=== PATIENT | female | born 1945 | race Caucasian/White ===

== ENCOUNTER → 2017-08-18 | Outpatient (CLI) | payer OTHER ==
[~2017-08-18] MED LIST: ALEVE220 MG PO; APAP650 PO; ASPIRIN325 PO; CEFPODOXIME PR200 M1 PO; COLACE100 MG PO; HYDROCODONE-AP1 EAC6 PO; MELATONIN5 M1 PO; METAMUCIL1 EAC1 PO; MIRALAX17 GM PO; OXYCODONE HCL 55 MG PO; SYNTHROID100 MCG PO; TRAZODONE HCL50 MG PO; ULTRAM 50MG TAB50 MG PO; XARELTO10 MG PO
== END ==
LOC: M.ULTRA 10:00
DX: N63.10 Unspecified lump in the right breast, unspecified quadrant (principal)

== ENCOUNTER → 2017-08-23 | Outpatient (CLI) | payer OTHER ==
--- NOTE | 2017-08-31 13:23 | S ---
[place] [address] SURGICAL PATH RPT PROCEDURE Name: MINOO STOCKTON Room: [facility]..#: [id number] Admission: 08/23/17 Date of : 47 Discharge: Report #: [id number] Path Case #: [id number] PATHOLOGY REPORT COLLECTION DATE: 08/23/2017 RECEIVED DATE: 08/23/2017 SUBMITTING PHYS: Dr. Gabriel Mullins OTHER PHYS: Anjelica Burnette MD SPECIMEN(S) RECEIVED: A.Right breast 1:00, 7 CMFN * * * * * * * * * * * * FINAL DIAGNOSIS: Breast biopsy "right breast 1:00, 7 cm from the nipple": - INFILTRATING DUCTAL CARCINOMA GRADE 1 MEASURING 0.8 CM IN GREATEST DIMENSION. - Minor focus of in situ ductal carcinoma cribriform type. COMMENT: Specimen type: biopsy Tumor site: right breast Tumor quantitation: 0.8cm Histologic type: infiltrating ductal carcinoma Histologic grade: grade 1 Tubules, nuclei and mitoses: 2,2,1 LVSI: none Microcalcifications: present Markers: ordered Block: A3 This case will receive intradepartmental review. If there are any changes additional report will follow. Luna Donahue at Dr. Gabriel Mullins's office was notified of the diagnosis on 08/24/2017 at 11am. Predictive breast markers are ordered and an additional report will follow. (SHA:pit; 08/24/2017) PATHOLOGIST: Gregg Gibbons M.D. REPORT ELECTRONICALLY SIGNED BY: Gregg Gibbons M.D. DATE/TIME: 08/24/2017 12:28 * * * * * * * * * * * * GROSS PATHOLOGY: Received in formalin labeled "Minoo Stockton, right breast 1:00 7 cm FN from nipple," are multiple needle cores of yellow-bernal fibrofatty tissue measuring between 2.1 x 0.4 x 0.3 cm and 0.5 x 0.5 [place] 0[place] [address] SURGICAL PATH RPT PROCEDURE Name: MINOO STOCKTON Room: [facility].#: [id number] Admission: 08/23/17 Date of : 47 Discharge: Report #: [id number] Path Case #: [id number] The tissue is submitted in its entirety in cassettes A1-A3. The cold ischemic time is 1 minute. The total formalin fixation time is 12 hours and 4 minutes. (SDY; 08/23/2017) CLINICAL HISTORY: 1:00 7 cm FN 0.6 x 0.4 x 0.6 cm INITIAL CPT CODE(S): A; 84511, 49819(4) Professional services performed by [facility] at [facility], [facility] [address], [place] [address]. Technical services performed by [facility] at [address] [place] [address], [address], [place] [address]. PROCEDURE REPORT (Order Date: 08/24/2017 11:11) COMMENT: Quantitative image analysis was performed on block A2. Please see next page for scanned image of results. (AMJ 08/31/2017) PATHOLOGIST: Marquita Ramos M.D. REPORT ELECTRONICALLY SIGNED BY: Marquita Ramos M.D. DATE/TIME: 08/31/2017 13:[address] [facility] [address] [place] [address] PHONE: [phone] DIRECTOR: Pedrito Nguyen M.D. * * * END OF REPORT * * *
== END ==
LOC: M.ULTRA 08:19
DX: N63.10 Unspecified lump in the right breast, unspecified quadrant (principal); D05.11 Intraductal carcinoma in situ of right breast

== ENCOUNTER → 2017-08-30 | Outpatient (CLI) | payer OTHER ==
--- NOTE | 2017-09-12 01:44 | CON ---
[address] [address] CONSULTATION Name: SANTY STOCKTON Room: [facility].#: [id number] Admission: 08/30/17 Attend Phys: Jadiel Anderson MD Discharge: Date of : 47 Report #: [id number] THIS REPORT FOR: //name// CC: Jadiel Brennan [facility] phone is [phone]. REFERRING PHYSICIANS: Include: Dr. Izzy Burnette, Dr. Brennan, Dr. Sherrie Lee. PRIMARY SITE AND HISTOPATHOLOGY: The patient has findings consistent with an early infiltrating ductal carcinoma of the right breast. HISTORY OF PRESENT ILLNESS: The patient is a 71-year-old woman who underwent a routine mammogram on 08/11/2017. It showed a spiculated nodule in the upper inner aspect of the posterior right breast and measured about 0.8 cm. An ultrasound revealed two nodules in the 1 o' clock position of the right breast, one measured 0.3 cm. x 0.3 cm. x 0.4 cm and that was the one that was suspicious. There was an adjacent smaller one measuring 0.2 cm. x 0.2 cm. x 0.3 cm. The patient had a biopsy of this lesion on 08/23/2017 and the pathology revealed an infiltrating ductal carcinoma that measured about 0.8 cm in greatest dimension and she presents to discuss treatment options. PAST MEDICAL HISTORY AND PAST SURGICAL HISTORY: Includes hypertension, history of colon polyps, hypothyroidism and arthritis. 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 MEDICATIONS: Levothyroxine 100 mcg per day and then 200 mg of ibuprofen 1-2 a day as needed. ALLERGIES: The patient has no known drug allergies. OBSTETRICAL AND GYNECOLOGIC HISTORY: Menarche at age 17, menopause around age 56. She is 3, para 2, SAB 1. FAMILY HISTORY: Mother had breast cancer and maternal grandfather had cancer, unknown type. Maternal and paternal aunts with cancers of unknown type. 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 She is . She has a son and a daughter. Ethanol: she does not drink alcohol containing drinks. Cigarettes: she does not smoke cigarettes. REVIEW OF SYSTEMS: GENERAL: She denied having any [place] [address] CONSULTATION Name: SANTY STOCKTON Room: [facility]#: [id number] Admission: 08/30/17 Attend Phys: Jadiel Anderson MD Discharge: Date of : 47 Report #: [id number] SKIN: She denied having color changes or itching. LYMPH NODES: She denied having large or painful glands in the neck. ENDOCRINE: She denied having any hot or cold intolerance. HEMATOLOGY/IMMUNOLOGY: She denied having any anemia or recent bleeding. MUSCULOSKELETAL: She did not have any arthritis or painful swollen joints. HEAD AND NECK: She denied having any headaches or migraines. RESPIRATORY: She denied having shortness of breath or cough. CARDIOVASCULAR: The patient did not have any palpitations. GASTROINTESTINAL: She denied having nausea or vomiting. NEUROLOGIC: She denied having any focal weakness. PHYSICAL EXAMINATION: With my nurse, Bailey Gunter, present: VITAL SIGNS: Height 5 feet 10 inches, weight 213 pounds, blood pressure 155/78, pulse 72, respirations 20. LYMPH NODES: The patient had no palpable cervical, supraclavicular or axillary lymphadenopathy. GENERAL AND PSYCHIATRIC: The patient was alert, oriented, in no acute distress. EYES: Pupils were equal, round, reactive to light and accommodation. Extraocular movements were intact. EARS, NOSE AND THROAT: Mouth had no visible lesions. HEART: Had a regular rate and rhythm without murmur. LUNGS: were clear to auscultation. BREASTS: Right breast, the patient had a small seroma measuring about 1.7 cm.x 1.7 cm in the 12 o'clock position. There were no suspicious masses involving the right breast. There were no suspicious palpable masses involving the left breast. ABDOMEN: Not tender. Spleen was not palpable. Liver was at the costal margin. EXTREMITIES: No clubbing, cyanosis or edema. NEUROLOGIC: Cranial nerves II to XII were intact. Sensation was intact. The patient had 5/5 strength in her extremities. ASSESSMENT AND PLAN: The patient has early breast cancer. Tumor markers are still pending. So she was told that her treatment options can include breast conservation versus mastectomy. This is based on studies such as the NSABP B-06 study where patients with early breast cancers were randomized between mastectomy versus lumpectomy, lumpectomy alone versus lumpectomy and radiation therapy. There was no difference in survival between the three treatment groups. At 20 years follow up the addition of radiation therapy to lumpectomy reduced the local failure rate from 39% to 14%. The risks and benefits and logistics of radiation therapy were discussed with the patient in detail. At this point, she is leaning towards proceeding with breast conservation therapy and she is leaning towards having external beam radiation therapy. The option of partial breast radiation with an implant was discussed with the patient. Also if this is an estrogen receptor positive tumor and the lymph nodes are not involved, then she does have an option of just surgery alone. This is based on the CAL study 9343 where patients at age 70 or greater, who had small estrogen receptor positive tumors and lymph nodes that were not involved with cancer, were randomized between lumpectomy and tamoxifen versus lumpectomy and tamoxifen and radiation therapy. At 10 years, the recurrence rate was about 10% without radiation therapy versus 2% with radiation therapy; [place] [address] CONSULTATION Name: SANTY STOCKTON Room: [facility]#: [id number] Admission: 08/30/17 Attend Phys: Jadiel Anderson MD Discharge: Date of : 47 Report #: [id number] difference in survival. She prefers trying to lower her recurrence rate as much as possible and is probably leaning towards radiation therapy even in that situation. So, I will ask my staff to give her a followup appointment to see me in a few weeks. She is scheduled to see her surgeon, Dr. Brennan, on 09/06/2017 and she is in the process of getting an appointment with her medical oncologist. <ELECTRONICALLY SIGNED> By: Jadiel Anderson MD 09/12/17 0144 1146 1756Jadiel Anderson MD /nt
== END ==
LOC: M.RTH 02:40
DX: C50.911 Malignant neoplasm of unspecified site of right female breast (principal); I10 Essential (primary) hypertension; E03.9 Hypothyroidism, unspecified; M19.90 Unspecified osteoarthritis, unspecified site; Z96.652 Presence of left artificial knee joint; Z86.010 Personal history of colon polyps

== ENCOUNTER → 2017-09-20 | Day surgery (SDC) | payer OTHER ==
[2017-09-20 11:02] LABS: HEMATOCRIT 38.6 % (37.0-47.0); MCH 28.6 pg (26.0-34.0); MCHC 33.7 g/dL (28.0-37.0); MCV 85.1 fL (80.0-100.0); MPV 7.7 fl. (7.2-11.1); RBC 4.54 mil/uL (4.20-5.00); RDW-CV 15.6 % (10.5-14.5); WBC 9.5 thou/uL (4.0-11.0)
[2017-09-20 11:08] LABS: CALCIUM 9.2 mg/dL (8.5-10.1); CREATININE 0.8 mg/dL (0.6-1.3); POTASSIUM 3.6 mmol/L (3.5-5.1)
[2017-09-20 11:13] LABS: TOTAL BILIRUBIN 1.1 mg/dL (<0.1-1.0); TOTAL PROTEIN 7.7 g/dL (6.4-8.2)
--- NOTE | 2017-09-25 13:35 | S ---
[address] [address] SURGICAL PATH RPT PROCEDURE Name: MINOO STOCKTON Room: [facility].#: [id number] Admission: 09/20/17 Date of : 47 Discharge: Report #: [id number] Path Case #: [id number] PATHOLOGY REPORT COLLECTION DATE: 09/20/2017 RECEIVED DATE: 09/20/2017 SUBMITTING PHYS: Dr. Janice Brennan OTHER PHYS: Anjelica Burnette MD SPECIMEN(S) RECEIVED: A.Right breast lumpectomy, short suture superior/long suture lateral B.Posterior margin short suture superior/long suture lateral C.Right sentinel lymph node * * * * * * * * * * * * FINAL DIAGNOSIS: A. Right breast lumpectomy, short suture superior/long suture lateral: - DUCTAL ADENOCARCINOMA, LOW GRADE (GRADE I), SPANNING 4 MM, ADJACENT TO CHANGES OF PRIOR BIOPSY SITE, WITH ALL SURGICAL MARGINS FREE OF INVOLVEMENT AND CLOSEST (ANTERIOR) LOCATED 5 MM AWAY. - FOCAL DUCTAL CARCINOMA IN SITU, INTERMEDIATE GRADE, CRIBRIFORM TYPE, SPANNING 3 MM, WITH ALL SURGICAL MARGINS FREE OF INVOLVEMENT AND CLOSEST (ANTERIOR) LOCATED 9 MM AWAY. SEE COMMENT. B. Posterior margin right breast: - Benign breast tissue with focal fat necrosis compatible with prior biopsy changes, usual ductal epithelial hyperplasia and lumenal calcifications, negative for atypia. C. Right sentinel lymph node: - One benign lymph node ( 0 /1). See comment. CLINICAL Clinical History: Prior history of breast cancer Specify Site, Diagnosis, and Prior Treatment: see comment SPECIMEN Procedure: Excision without image-guided localization Lymph Node Sampling: [place] lymph node(s) Specimen Laterality: Right TUMOR Primary Tumor Site: Invasive Carcinoma: Not specified Presence of Invasive Carcinoma: Histologic Type: Invasive mammary carcinoma of no special type (ductal, not otherwise specified) Histologic Grade (Tyshawn Histologic Score): Glandular (Acinar) / Tubular Differentiation: Score 1 (> 75% of tumor area forming glandular / tubular structures) Nuclear Pleomorphism: Score 2 (Cells larger than normal with open vesicular nuclei, visible nucleoli, [place] [address] SURGICAL PATH RPT PROCEDURE Name: MINOO STOCKTON Room: [facility]#: [id number] Admission: 09/20/17 Date of : 47 Discharge: Report #: [id number] Path Case #: [id number] moderate variability in both size and shape) Mitotic Rate: Score 1 (<=3 mitoses per mm2) Overall Grade: Grade 1 (scores of 3, 4 or 5) Ductal Carcinoma In Situ (DCIS): DCIS is present Negative for extensive intraductal component (EIC) Estimated Size (extent) of DCIS (greatest dimension using gross and microscopic evaluation) is at Least (mm): 3 Number of Blocks with DCIS: 1 Number of Blocks Examined: 21 Architectural Patterns: Cribriform Nuclear Grade (see Table 2 in CAP Protocol): Grade II (intermediate) Necrosis: Not identified Lobular Carcinoma In Situ (LCIS): Not identified Tumor Size: Size of Largest Invasive Carcinoma: Greatest dimension of largest focus of invasion > 1 mm Greatest Dimension (mm): 8 Accessory Tumor Findings Lymph-Vascular Invasion: Not identified Dermal Lymph-Vascular Invasion: No skin present Microcalcifications: Present in nonneoplastic tissue Treatment Effect: Response to Presurgical (Neoadjuvant) Therapy: No known presurgical therapy MARGINS Invasive Carcinoma: Margins uninvolved by invasive carcinoma Distance from Closest Margin: Distance (specify in mm): 5 Closest Uninvolved Margin: Anterior Inferior: 9 Ductal Carcinoma In Situ (DCIS): Margins uninvolved by DCIS (DCIS present in specimen) Distance of DCIS from Closest Margin (mm): Distance (specify in mm): 9 Closest Uninvolved Margin(s): Anterior LYMPH NODES Regional Lymph Nodes: [place] lymph node biopsy performed Number of [place] Nodes Examined: Specify number: 1 Method of Evaluation of [place] Lymph Node(s): H-E, multiple levels Immunohistochemistry Number of Lymph Node(s) Examined (sentinel and nonsentinel): Specify number: 1 STAGE (PTNM) Primary Tumor (Invasive Carcinoma) (pT): pT1b: Tumor > 5 mm but <= 10 mm in greatest dimension Modifier: (sn): Only sentinel node([place]) [place] [address] SURGICAL PATH RPT PROCEDURE Name: MINOO STOCKTON Room: [facility].#: [id number] Admission: 09/20/17 Date of : 47 Discharge: Report #: [id number] Path Case #: [id number] evaluated. If 6 or more nodes (sentinel or nonsentinel) are removed, this modifier should not be used. Category (pN): pN0 (i-): No regional lymph node metastases histologically, negative IHC COMMENT: The largest residual focus of invasive tumor in the lumpectomy specimen spans 4 mm and the closest approximation to the anterior margin is seen in A4. The next closest margin to the invasive tumor is inferior, located 9 mm away (A4). In the lumpectomy specimen (A), the biopsy cavity approaches to 2 mm away from the posterior margin, although it is noted that additional posterior marginal tissue (B), is negative for malignancy and atypia. Appropriately controlled keratin AE1/AE3 performed on the sentinel lymph node (C1) shows no evidence of metastatic tumor. The synoptic data is updated to include information from the prior "right breast 1:00, 7 cm from the nipple" image-guided biopsy which showed a larger span of invasive neoplasm (8 mm). Breast tumor profile studies performed on that specimen ([id number] A2) showed the following results: ER 97.5%, UT 37.2%, HER2 1+/not overexpressed, Ki-67 9.6%. (NICHOLAS:homero/alice; 09/25/2017) PATHOLOGIST: Tez Fish M.D. REPORT ELECTRONICALLY SIGNED BY: Tez Fish M.D. DATE/TIME: 09/25/2017 13:34 * * * * * * * * * * * * GROSS PATHOLOGY: A. The specimen is received in formalin labeled "Minoo Stockton, right breast lumpectomy, short suture superior, long suture lateral". Received is a 29 g lumpectomy specimen oriented with a short suture designating the superior margin and a long suture designating the lateral margin. The specimen measures 5.3 cm from medial to lateral, 4.5 cm from superior to inferior, and 2.7 cm from anterior to posterior. The specimen is inked as follows: Superior-blue, inferior-green, lateral-red, medial-yellow, anterior-black, posterior-orange. Sectioning reveals a previous biopsy site measuring 1.2 x 0.6 x 0.5 cm. This site is 2.7 cm from the lateral margin, 2.4 cm from the medial margin, 1.7 cm from the anterior margin, 0.2 cm from the posterior margin, 1.9 cm from the superior margin, and 0.9 cm from the inferior margin. Anterior and lateral to the previous biopsy site, there is a small focus of white-bee fibrous tissue measuring 0.5 x 0.5 x 0.5 cm, which is 0.6 cm from the closest margin (anterior). The specimen is submitted representatively as follows: A1 [place] [address] SURGICAL PATH RPT PROCEDURE Name: MINOO STOCKTON Room: [facility].#: [id number] Admission: 09/20/17 Date of : 47 Discharge: Report #: [id number] Path Case #: [id number] A2 most medial margin A3-A8 entire previous biopsy site submitted from lateral to medial aspects, with sections in cassettes A4 through A7 bisected into inferior and superior aspects A9 small focus of fibrous tissue anterior and lateral to previous biopsy site. The cold ischemic time is 10 minutes. The total formalin fixation time is 31 hours and 9 minutes. B. The specimen is received in formalin labeled "Minoo Capellaneve, posterior margin right breast, short suture superior/long suture lateral". Received is a 16 g lumpectomy specimen oriented with a short suture designating the superior margin and a long suture designating the lateral margin. The specimen measures 4.9 cm from medial to lateral, 4.6 cm from superior to inferior, and 2.0 cm from anterior to posterior. The specimen is inked as follows: Superior-blue, inferior-green, lateral-red, medial-yellow, anterior-black, posterior-orange. Sectioning reveals yellow-bee, lobulated to white-bee, fibrous cut surfaces throughout, with the fibrous tissue encompassing approximately 5% of the specimen. No distinct nodules or lesions are noted grossly. The specimen is submitted representatively as follows: B1 most lateral margin B2-B11 alternating sections submitted from lateral to medial aspects, with each segment additionally bisected into superior and inferior aspects B12 most medial margin. The cold ischemic time is 8 minutes. The total formalin fixation time is 31 hours and 8 minutes. C. The specimen is received in formalin labeled "Minoo Stockton, right sentinel lymph node". Received is a segment of bright yellow lobulated tissue measuring 2.3 x 1.3 x 1.0 cm in greatest dimensions. Dissection and palpation of the specimen reveals a single lymph node measuring 0.8 cm in maximum dimensions. The lymph node is bisected and entirely submitted in cassette C1. Immunohistochemical stains are ordered. (CAA; 09/21/2017) CLINICAL HISTORY: Right breast cancer INITIAL CPT CODE(S): A; 17098 B; 78172 C; 85535, 21858 Professional services performed by [employer] at [facility], [address] [place] [address]. Technical services performed by [employer] at [address] [place] [address], [address], [place] [address] SURGICAL PATH RPT PROCEDURE Name: MINOO STOCKTON Room: [facility]#: [id number] Admission: 09/20/17 Date of : 47 Discharge: Report #: [id number] Path Case #: [id number] [place] [address]. [facility] [address] [address] PHONE: [phone] DIRECTOR: Pedrito Nguyen M.D. * * * END OF REPORT * * *
--- NOTE | 2017-09-25 18:02 | OP ---
[address] [address] OPERATIVE REPORT Name: SANTY STOCKTON Room: [facility]#: [id number] Admission: 09/20/17 Attend Phys: Janice Brennan DO Discharge: Date of : 47 Report #: [id number] THIS REPORT FOR: //name// CC: Janice Harrisongvan Burnette DATE OF SERVICE: 09/20/2017 PREPROCEDURE DIAGNOSIS: Right breast cancer. POSTPROCEDURE DIAGNOSIS: Right breast cancer. FINDINGS: Right breast needle localization. SURGEON: Janice Brennan DO. COSURGEON: Yazan Wyman, PGY2. INTERACTIVE ACCOUNT MANAGER: Fernando Kwon, MS3. OPERATION PERFORMED: Wire-guided lumpectomy and a right deep sentinel lymph node dissection. ANESTHESIA: General LMA and local. ESTIMATED BLOOD LOSS: 5. SPECIMENS: Right breast lumpectomy and right deep sentinel lymph node. COMPLICATIONS: None. CONDITION: Stable. DISPOSITION: PACU to home. HISTORY OF PRESENT ILLNESS: The patient is a very pleasant 71-year-old female who is well known to me in my office after having had a change in her mammogram. She underwent a biopsy, which did show right breast cancer. She was seen by Oncology and Radiation Oncology and after further discussion, decided to move forward with a lumpectomy and a sentinel lymph node dissection. Risks discussed included bleeding, infection, pain, scar formation, deformation of the breast, positive margins requiring further surgery, injury to the artery, vein and nerve in the axilla and risks of general anesthesia. The patient understood these risks and elected to proceed. DESCRIPTION OF PROCEDURE: The patient presented to [facility] [place] [address] OPERATIVE REPORT Name: SPARKLEDARYLYOLYSANTY Elizabet [id number] Admission: 09/20/17 Attend Phys: Janice Brennan DO Discharge: Date of : 47 Report #: [id number] Radiology, where she underwent right breast needle localization and a nuclear medicine injection in the right breast. She then returned to Surgery where she underwent informed consent. She was then taken to the operating room. She was laid supine on the operating room table. SCDs were placed to bilateral lower extremities. Ancef was given in the perioperative period. General LMA anesthesia was induced by Anesthesia without difficulty. 5 mL of Lymphazurin blue was then injected in the periareolar area of the right breast. After timeout was performed to verify patient and procedure, right breast and axilla were then prepped and draped in standard sterile fashion. Tip of the wire was palpated and was marked. A curvilinear incision was made with #15 blade. Cautery was used for hemostasis. Then, using the wire for guidance, an appropriately size lumpectomy was created. Once specimen was amputated from the surrounding tissue, it was marked in the superior and lateral directions and sent to Radiology for imaging. On further examination of the specimen, it did appear that I could potentially see the posterior edge of the mass, so an additional posterior margin taken, utilizing cautery. It was also marked in the superior and lateral direction of the said posterior margin. At this ,point Radiology did return our phone call indicating that we had obtained the mass and the two clips. Hemostasis was assured within the cavity. The Neoprobe was then brought into the field and the nipple was interrogated. The highest uptake was approximately 2500. Neoprobe was initially introduced into her cavity and we did have high uptake through our cavity. We then performed the sentinel lymph node dissection through the seen cavity. [facility] retractors were used for retraction. Then the blue dye in the Neoprobe was used to get as deep within the axilla. This was done using a very gentle combination of blunt and cautery dissection. Once we were quite deep into the axilla, a very blue node was identified with an uptake of approximately 3000. This area was grasped using an Allis clamp and gently elevated. It was then excised from the surrounding tissue using a combination of blunt and cautery dissection off the field. Again, the uptake was approximately 3000. This was then sent as our right deep sentinel lymph node. Hemostasis in this area was assured. FloSeal was then injected in the cavity. The wound was then closed in a layered fashion using deep and superficial stitches of 3-0 Vicryl in inverted interrupted fashion. Skin was closed with running 4-0 Monocryl. A total of 25 mL of 0.5% Marcaine were used to anesthetize the wound. Wound was then cleansed and covered with Mastisol, Steri-Strips, 4 x 4's, and a Tegaderm. The patient was then allowed to awaken from anesthesia, was extubated and transported to the recovery room with no further difficulties. Counts were correct at the conclusion of the case. <ELECTRONICALLY SIGNED> By: Janice Brennan DO 09/25/17 1802 1532 1909Janice Brennan DO /nt
== END | disposition home or self-care (01) ==
LOC: M.SUR 08:36
PROVIDERS: Surgery
DX: C50.911 Malignant neoplasm of unspecified site of right female breast (principal); D36.0 Benign neoplasm of lymph nodes

== ENCOUNTER 2017-09-26 15:17 | Observation (INO) | payer OTHER ==
[~2017-09-26] VITALS: Ht 172.7 cm; Wt 92.5 kg
[~2017-09-26 15:17] MED LIST changes: -CEFPODOXIME PR200 M1 PO
[2017-09-26 15:23] VITALS: BP 175/91
[2017-09-26 16:05] LABS: ABSOLUTE BASOPHILS 0.1 thou/uL (0.0-0.2); ABSOLUTE EOSINOPHILS 0.2 thou/uL (0.0-0.7); ABSOLUTE LYMPHOCYTES 2.3 thou/uL (0.8-5.3); ABSOLUTE MONOCYTES 0.9 thou/uL (0.0-1.2); ABSOLUTE NEUTROPHILS 5.1 thou/uL (1.6-8.1); EOSINOPHILS 1.9 %; HEMATOCRIT 38.9 % (37.0-47.0); HEMOGLOBIN 13.1 gm/dL (12.0-15.0); LYMPHOCYTES 27.2 %; MCH 28.4 pg (26.0-34.0); MCHC 33.7 g/dL (28.0-37.0); MCV 84.2 fL (80.0-100.0); MONOCYTES 10.4 %; MPV 7.5 fl. (7.2-11.1); NUCLEATED RBCS 0 /100WBC; PLATELET COUNT* 278 thou/uL (150-400); POLYS 59.5 %; RBC 4.62 mil/uL (4.20-5.00); RDW-CV 15.3 % (10.5-14.5); WBC 8.5 thou/uL (4.0-11.0)
[2017-09-26 16:20] LABS: ANION GAP 9 mmol/L (7-16); BUN 15 mg/dL (7-18); CALCIUM 9.1 mg/dL (8.5-10.1); CHLORIDE 103 mmol/L (98-107); CO2 26 mmol/L (21-32); CREATININE 0.8 mg/dL (0.6-1.3); GLUCOSE 111 mg/dL (70-99); POTASSIUM 3.4 mmol/L (3.5-5.1); SODIUM 138 mmol/L (136-145)
[2017-09-26 16:32] LABS: INFLUENZA A ANTIGEN None Detected (None Detect); INFLUENZA B ANTIGEN None Detected (None Detect)
[2017-09-26 16:38] LABS: ALBUMIN 3.5 g/dL (3.4-5.0); ALKALINE PHOSPHATASE 132 U/L (46-116); LIPASE 100 U/L (73-393); NT-PRO BRAIN NAT PEPTIDE 56 pg/mL (<300); SGOT 19 U/L (15-37); SGPT 25 U/L (30-65); TOTAL BILIRUBIN 1.4 mg/dL (<0.1-1.0); TOTAL PROTEIN 7.4 g/dL (6.4-8.2); TROPONIN-I LEVEL <0.06 ng/mL (<0.06)
[2017-09-26 21:27] VITALS: BP 162/87
[2017-09-26 21:46] VITALS: BP 151/81
[2017-09-27] VITALS (10 sets, daily range): BP systolic 121–143; BP diastolic 67–98
--- NOTE | 2017-09-27 05:54 | NUR ---
PATIENT ARRIVED VIA CART FROM ED AROUND 2139. PATIENT A/OX AND VERY PLEASANT, TALKING ABOUT HER JOB WITH THE [employer] LAST NIGHT. PT REPORTED DIZZYNESS AND APPEARED TO REST WELL TONIGHT. PENDING NEURO CONSULT. PT DENIES ANY WEAKNESS OR VISION CHANGES. TELE TRACING SR. VSS, AFEBRILE. ON ROOM AIR. IV SALINE LOCKED. H/A TREATED WITH PRN APAP. UP SBA. SEE CHARTING. CALL LIGHT IN REACH, FALL PRECAUTIONS IN PLACE, WILL CONTINUE WITH PLAN OF CARE.
--- NOTE | 2017-09-27 11:56 | NUR ---
RECEIVED PT CARE 0700. PATIENT IS ALERT AND ORIENTED X4. VSS. ATHLETIC TEAM PHYSICIAN TRACING SR WITH PVC'S. ORTHOSTATICS CHARTED AND REPORTED TO DR CONKLIN. PATIENT DENIES PAIN. NO SOA. O2 SAT 98% ON ROOM AIR. UP IN ROOM WITH STANDBY ASSIST, AMBULATES TO RESTROOM. GAIT STEADY BUT PATIENT WILL COMPLAIN OF DIZZINESS WITH ANY HEAD MOVEMENT. AM ASSESSMENT CHARTED. MEDS PER MAR. IVF STARTED. POTENTIAL DC THIS AFTERNOON IF SYMPTOMS IMPROVE. PATIENT UPDATED ON PLAN OF CARE. CALL LIGHT WITHIN REACH. WILL CONTINUE TO MONITOR.
--- NOTE | 2017-09-27 12:00 | NUR ---
SPOKE WITH PT.AND HER . SHE WAS ALERT AND ORIENTED. HOPES TO GO HOME TODAY. STATED WHEN FEELING WELL, SHE IS INDEPENDENT WITH EVERYTHING. SHE BABYSITS HER GRANDKIDS, CLEANS,COOKS,DRIVES, ETC. SHE DOES NOT USE ANY DME. HAD HOME HEALTH LAST YEAR WITH [facility] AFTER TOTAL KNEE REPLACEMENT. SHE DOES HAVE A WALKER AT HOME. SHE SAID THEY THINK SHE HAS A SINUS INFECTION. WANTS TO MAKE SURE SHE HAS A SCPRIPT FOR ANTIBIOTIC VANTIN. INFORMED SHAHLA SANTIAGO AND PRESCRIPTION ON FRONT OF CHART.
--- NOTE | 2017-09-27 12:43 | EKG ---
[place] [address] ELECTROCARDIOGRAM REPORT Name: SANTY STOCKTON Room: [address] ADM IN .R.#: [id number] Admission: 09/26/17 Attend Phys: Dougie Doll Discharge: Date of : 47 Report #: [id number] THIS REPORT FOR: //name// [facility] ED Test Date: 2017-09-26 Test Time: 15:43:48 Pat Name: SANTY STOCKTON Department: Room: [facility] Gender: F Supervisor [employer]: MS : 1945 Requested By: Mynor Tinoco Order Number: [id number] MD: Kurt Camacho Measurements Intervals [place] Rate: 73 P: 51 [place]: 166 QRS: -46 QRSD: 117 T: 64 QT: 442 QTc: 488 Interpretive Statements Sinus rhythm LAD, consider left anterior fascicular block Compared to ECG 05/18/2017 09:29:44 No significant changes Electronically Signed On 09-27-2017 12:43:37 GORE INSERTER by Kurt Camacho [email or web address] <ELECTRONICALLY SIGNED> By: Kurt Camacho MD, [facility] 09/27/17 [facility]3 1543 1543 Kurt Camacho MD, [facility] /EPI
[2017-09-27] MEDS ORDERED: CEFPODOXIME PR200 M1 PO (15:10)
--- NOTE | 2017-09-27 15:18 | NUR ---
P.T. ORDERS RECEIVED. CHART REVIEWED. DISCUSSION WITH O.T. REVEALS PT INDEP WITH BED MOBILITY AND GAIT IN ROOM. SPOKE WITH PT WHO DENIED DIZZINESS AND STATES SHE HAS NO CONCERNS WITH MOBILITY. PT WANTING TO GO HOME. SPOUSE IN ROOM AND CONFIRMS PT INDEP WITH MOBILITY. IN ABSENCE OF DIZZINESS, NO VERTIGO EXERCISES INDICATED. NO FURTHER ACUTE P.T. INTERVENTION INDICATED AT THIS TIME.
--- NOTE | 2017-09-27 15:19 | NUR ---
NO OT AT THIS TIME, PT ABLE TO COMPLETE BADLS WITH INDEP, NO AD, AND NO DISPLAY OR REPORT OF DIZZINESS.
--- NOTE | 2017-09-27 18:19 | NUR ---
RECEIVED DISCHARGE ORDERS PER DR CONKLIN. 1 LITER NS INFUSED. PATIENT DENIES ANY DIZZINESS. AMBULATES IN ROOM WITHOUT ANY C/O DIZZINESS. STATES SHE FEELS GOOD AND BACK TO HER NORMAL. IV DISCONTINUED. CREW LEAD REMOVED AND RETUNRED TO NURSE'S DESK. EDUCATED PT TO F/U WITH HER PRIMARY DR AFTER DC. NEW SCRIPT GIVEN WITH MEDICATION INFORMATION SHEETS. ALL BELONGINGS ARE PACKED AND LEAVING WITH PATIENT. PATIENT LEAVING VIA WHEELCHAIR ACCOMPANIED BY NURSING STAFF AND HER SPOUSE.
== END 2017-09-27 18:27 | disposition home or self-care (01) ==
LOC: M.ERS 15:17 → M.2W 20:36 → M.TBA-ER 20:36 → M.2W 21:36
PROVIDERS: Emergency Medicine; ADMIT Internal Medicine
DX: R42 Dizziness and giddiness (principal); J06.9 Acute upper respiratory infection, unspecified; E03.9 Hypothyroidism, unspecified; Z96.652 Presence of left artificial knee joint; Z85.3 Personal history of malignant neoplasm of breast

== ENCOUNTER → 2017-12-06 | Outpatient (CLI) | payer OTHER ==
[~2017-12-06] MED LIST changes: +CEFPODOXIME PR200 M1 PO
--- NOTE | 2017-12-06 15:34 | 2DMMODE ---
[place] [address] 2 D/M-MODE ECHOCARDIOGRAM Name: SANTY STOCKTON Room: [facility]#: [id number] Admission: 12/06/17 Attend Phys: Kurt Camacho MD Discharge: Date of : 47 Date of Service: 12/06/17 1533 Report #: [id number] THIS REPORT FOR: //name// APPROVED REPORT Study performed: 12/06/2017 14:22:03 EXAM: Comprehensive 2D, Doppler, and color-flow Echocardiogram Patient Location: Out-Patient Status: routine BSA: 2.13 HR: 79 bpm BP: 142/88 mmHg Other Information Study Quality: Good Indications Abnormal ECG 2D Dimensions LVEF(%): 77.55 (>50%) IVSd: 13.21 (7-11mm) LVOT Diam: 20.47 (18-24mm) LVDd: 41.72 mm PWd: 10.31 (7-11mm) Ascending Ao: 35.23 (22-36mm) LVDs: 22.61 (25-40mm) Aortic Root: 30.82 mm Tabor's LVEF: 77.55 % Volumes Left Atrial Volume (Systole) LA ESV Index: 13.60 mL/m2 Aortic Valve AoV Peak Andrea.: 1.32 m/s AO Peak Gr.: 6.97 mmHg LVOT Max P.36 mmHg AO Mean Gr.: 3.65 mmHg LVOT Mean P.20 mmHg LVOT Max V: 1.04 m/s AO V2 VTI: 27.56 cm LVOT Mean V: 0.68 m/s ALEXANDER (VTI): 2.85 cm2 LVOT V1 VTI: 23.87 cm Mitral Valve E/A Ratio: 0.64 MV Decel. Time: 348.09 [place] [address] 2 D/M-MODE ECHOCARDIOGRAM Name: ASNTY STOCKTON Room: [facility]#: [id number] Admission: 12/06/17 Attend Phys: Kurt Camacho MD Discharge: Date of : 47 Date of Service: 12/06/17 1533 Report #: [id number] MV E Max Andrea.: 0.46 m/s MV PHT: 100.94 ms MVA (PHT): 2.18 cm2 TDI E/Lateral E': 4.18 E/Medial E': 5.11 Medial E' Andrea.: 0.09 m/s Lateral E' Andrea.: 0.11 m/s Pulmonary Valve PV Peak Andrea.: 1.22 m/s PV Peak Gr.: 5.98 mmHg Tricuspid Valve TR Peak Gr.: 21.42 mmHg RVSP: 26.42 mmHg Left Ventricle The left ventricle is normal size. There is normal LV segmental wall motion. There is normal left ventricular wall thickness. Left ventricular systolic function is normal. The left ventricular ejection fraction is within the normal range. LVEF is 60-65%. Grade I - abnormal relaxation pattern. Right Ventricle The right ventricle is normal size. The right ventricular systolic function is normal. Atria The left atrium size is normal. The right atrium size is normal. Aortic Valve The aortic valve is normal in structure. Trace aortic regurgitation. There is no aortic valvular stenosis. Mitral Valve The mitral valve is mildly thickened. Mild mitral regurgitation. No evidence of mitral valve stenosis. Tricuspid Valve The tricuspid valve is normal in structure. Mild tricuspid regurgitation. The RVSP is _26.4 mmHg. Pulmonic Valve The pulmonary valve is normal in structure. Trace pulmonic [place] [address] 2 D/M-MODE ECHOCARDIOGRAM Name: SANTY STOCKTON Room: [facility]#: [id number] Admission: 12/06/17 Attend Phys: Kurt Camacho MD Discharge: Date of : 47 Date of Service: 12/06/17 1533 Report #: [id number] Great Vessels The aortic root is normal in size. IVC is normal in size and collapses with >50% inspiration Pericardium There is no pericardial effusion. <Conclusion> The left ventricle is normal size. There is normal left ventricular wall thickness. Left ventricular systolic function is normal. The left ventricular ejection fraction is within the normal range. LVEF is 60-65%. Grade I - abnormal relaxation pattern. The right ventricle is normal size. The left atrium size is normal. The aortic valve is normal in structure. Trace aortic regurgitation. There is no aortic valvular stenosis. The mitral valve is mildly thickened. Mild mitral regurgitation. No evidence of mitral valve stenosis. The tricuspid valve is normal in structure. Mild tricuspid regurgitation. The RVSP is _26.4 mmHg. IVC is normal in size and collapses with >50% inspiration There is no pericardial effusion. There is normal LV segmental wall motion. <ELECTRONICALLY SIGNED> By: Mansoor Sheffield MD, FACC 12/06/17 1533 1533 153 Mansoor Sheffield MD, FACC /INF
== END ==
LOC: M.CRD 13:44
DX: R94.31 Abnormal electrocardiogram [ECG] [EKG] (principal)

== ENCOUNTER → 2018-02-28 | Outpatient (CLI) | payer OTHER | LOC: M.RAD 09:40 | DX: R92.8 Other abnormal and inconclusive findings on diagnostic imaging of breast (principal); Z85.3 Personal history of malignant neoplasm of breast; Z17.0 Estrogen receptor positive status [ER+] ==

== ENCOUNTER → 2018-09-03 | Outpatient (CLI) | payer OTHER | LOC: M.RAD 03-08 09:08 | DX: C50.211 Malignant neoplasm of upper-inner quadrant of right female breast (principal); Z17.0 Estrogen receptor positive status [ER+] ==

== ENCOUNTER 2019-06-04 11:15 | Observation (INO) | payer OTHER ==
[2019-05-23 09:04] LABS: ABSOLUTE BASOPHILS 0.1 thou/uL (0.0-0.2); ABSOLUTE EOSINOPHILS 0.1 thou/uL (0.0-0.7); ABSOLUTE LYMPHOCYTES 1.6 thou/uL (0.8-5.3); ABSOLUTE MONOCYTES 0.6 thou/uL (0.0-1.2); EOSINOPHILS 1.9 %; HEMATOCRIT 40.3 % (37.0-47.0); HEMOGLOBIN 13.6 gm/dL (12.0-15.0); LYMPHOCYTES 30.3 %; MCH 29.7 pg (26.0-34.0); MCHC 33.8 g/dL (28.0-37.0); MCV 87.8 fL (80.0-100.0); MONOCYTES 11.9 %; MPV 7.8 fl. (7.2-11.1); NUCLEATED RBCS 0 /100WBC; PLATELET COUNT* 240 thou/uL (150-400); POLYS 54.9 %; RBC 4.59 mil/uL (4.20-5.00); RDW-CV 14.6 % (10.5-14.5); WBC 5.4 thou/uL (4.0-11.0)
[2019-05-23 09:21] LABS: ALBUMIN 3.8 g/dL (3.4-5.0); CALCIUM 9.4 mg/dL (8.5-10.1); CREATININE 0.8 mg/dL (0.6-1.3); POTASSIUM 4.1 mmol/L (3.5-5.1); TOTAL BILIRUBIN 1.2 mg/dL (<0.1-1.0); TOTAL PROTEIN 7.5 g/dL (6.4-8.2)
--- NOTE | 2019-05-23 17:21 | EKG ---
[place] [address] ELECTROCARDIOGRAM REPORT Name: SANTY STOCKTON Room: [facility] M.R.#: [id number] Admission: Attend Phys: Yazan Pack DO Discharge: Date of : 47 Report #: [id number] THIS REPORT FOR: //name// [facility] Test Date: 2019-05-23 Test Time: 09:37:17 Pat Name: SANTY STOCKTON Department: Room: Gender: F Micro Computer Data Processor: RT : 1945 Requested By: Yazan Pack Order Number: [id number] Reading MD: Jadiel Marin Measurements Intervals [place] Rate: 61 P: 49 SD: 171 QRS: -53 QRSD: 113 T: 33 QT: 456 QTc: 460 Interpretive Statements Sinus rhythm Left anterior fascicular block Abnormal R-wave progression, early transition Probable left ventricular hypertrophy Compared to ECG 09/26/2017 15:43:48 No significant changes Electronically Signed On 05-23-2019 17:21:11 CDT by Jadiel Marin [email or web address] <ELECTRONICALLY SIGNED> By: Jadiel Marin MD, [facility] 05/23/19 1721 6 6 Jadiel Marin MD, FACC /EPI
[2019-05-23 23:07] LABS: GLYCOHEMOGLOBIN (HGB A1C) 5.6 % (4.8-5.6)
[~2019-06-04] VITALS: Ht 175.3 cm; Wt 97.5 kg
[~2019-06-04 11:15] MED LIST changes: +ARIMIDEX PO
[2019-06-04 12:00] VITALS: BP 137/85
--- NOTE | 2019-06-04 17:26 | NUR ---
PATIENT ARRIVED TO UNIT AT 1715. ALERT AND ORIENTED X4. ASSESSMENT COMPLETED AND CHARTED. VSS ON ROOM AIR. NO COMPLAINTS OF PAIN AT THIS TIME. ORIENTED PATIENT AND TO ROOM AND UNIT. FLUIDS STARTED AND INFUSED ORDERED. FALL PRECAUTIONS IN PLACE. CALL LIGHT WITHIN REACH. HOURLY ROUNDS. NURSING WILL CONTINUE TO MONITOR.
[2019-06-04 17:33] VITALS: BP 157/80
[2019-06-04 19:40] VITALS: BP 144/87
--- NOTE | 2019-06-04 19:40 | NUR ---
RESTING IN BED. IV FLUIDS INFUSING. 02 NC AT TWO LITERS. C02 AND [address] CALL LIGHT WITHIN REACH.
[2019-06-05] VITALS: BP 134/75
[2019-06-05 04:00] VITALS: BP 139/77
[2019-06-05 05:00] LABS: HEMATOCRIT 34.8 % (37.0-47.0); HEMOGLOBIN 11.7 gm/dL (12.0-15.0)
--- NOTE | 2019-06-05 06:57 | NUR ---
GOOD RELIEF FROM RIGHT KNEE PAIN WITH TRAMADOL AND ICE PACKS. IV FLUIDS INFUSING. TRANSFERS TO BEDSIDE COMMODE WITH ASSIST OF ONE TO VOID. HOURLY ROUNDING IN PROGRESS.
[2019-06-05 08:00] VITALS: BP 120/64
--- NOTE | 2019-06-05 08:02 | OP ---
[address] [address] OPERATIVE REPORT Name: SANTY STOCKTON Room: [address] MDiane#: [id number] Admission: 06/04/19 Attend Phys: Dougie Doll Discharge: Date of : 47 Report #: [id number] THIS REPORT FOR: //name// CC: Izzy Freeman DATE OF SERVICE: 06/04/2019 PREOPERATIVE DIAGNOSIS: Severe varus deformity, osteoarthritis of the right knee. POSTOPERATIVE DIAGNOSIS: Severe varus deformity, osteoarthritis of the right knee. SURGERY PERFORMED: Ame cemented 3 component right total knee arthroplasty, 6 is the size of the femur, D is the size of the tibia, 32 patella and a 13-mm polyethylene. SURGEON: Yazan Pack DO. [employer]EM[employer]PING DEPARTMENT: Zack. SECOND FISH PROCESSOR: Dr. Ruben DO, resident. ANESTHESIA: General anesthetic. ANTIBIOTICS: The patient did receive Ancef 2 grams IV piggyback preoperatively. SPECIMENS: None. COMPLICATIONS: None. DRAINS: None. GROSS FINDINGS: Prior to surgery demonstrated varus deformity of this right knee with completely eburnated bone to the entire medial compartment of the right knee, hard sclerotic medial bone as well as a hypoplastic lateral femoral condyle. The patient post-placement of the total knee demonstrated a well-tracking patella. She had full global stable range of motion in extension, mid flexion and flexion. DESCRIPTION: Surgery is as follows: The patient was taken to the operating room and given a general anesthetic and prior to that had an adductor canal block applied. She had a well-padded tourniquet on the right leg. I only used the tourniquet for cementing purposes. Surgery continued with Hibiclens scrub and chlorhexidine prep and sterile draping for right knee surgery[place] [address] OPERATIVE REPORT Name: SANTY STOCKTON Room: [address] Joanna Moore#: [id number] Admission: 06/04/19 Attend Phys: Dougie Doll Discharge: Date of : 47 Report #: [id number] called and verified by everyone in the room for the right knee. At this time, a midline incision was made with a scalpel through skin and subcutaneous tissues down to the capsule. A second medial parapatellar capsular incision was made with a new blade and maintain hemostasis throughout surgery. The patella was everted, knee flexed to 90 degrees. Excess osteophytes were removed. Distal femoral drill hole was made. The distal femur guide was put in appropriate position. I cut the femur at a 5-degree angle and a wafer of bone was removed. I now went to the tibia side, did an external guide jig across the ankle and proximally secured cutting the bone block in place, measuring off the high lateral side and skimming just the medial surface beneath the bad table of bone. This wafer of bone was now removed. I went back at this point in time and sized the femur to a #6 appropriately, the drill holes were made in the 4-in-1 block was applied and all cuts were made with oscillating saw, removing bend of the bone. Once the femur was cut appropriately went down to the tibia, sized it to #D appropriately, that baseplate was secured in place with small screws, femur was put back into position and I did a trial with a 12 mm polyethylene and it was okay, so I elected at this stage to ream the patella and it appropriately was reamed sized to 32. The drill holes were made and the patella tracked well. I now Esmarched this extremity with the tourniquet to 325 mmHg. The knee was flexed back to 90 degrees and all internal component was removed off the patella, femur was previously drilled, and at this time, we did the reamer to the tibia followed by the cruciform cut. The baseplate was now removed. I did maintain hemostasis one more time before one stage cement. I did drill the medial tibial plateau that was very hard sclerotic bone. I did pulsatile lavage irrigation across the entire knee and I did now cemented into position the tibia, the femur, removed excess cement and compressed her with a 13 mm trial polyethylene. The patella was cemented in place as well. We held the leg in extension until cement had hardened. At this stage, the knee felt very stable with a 13, so I elected to place in 13 vitamin E polyethylene. I removed the trial component. The real polyethylene was seated in the tibia tray until audible click was now found. I placed for motion one more time demonstrated good stability. I copiously irrigated with normal saline, followed with a TXA wash and then normal saline wash again. Capsule was closed with 1 Ethibond and 1 Vicryl deeply, subcutaneous tissues, 2-0 Monocryl subcutaneously followed with Stratafix and Dermabond to the skin. Mepilex dressing was applied. I attest I was present for all critical aspects of surgery. Needle, instrument, sponge counts correct. <ELECTRONICALLY SIGNED> By: Yazan Pack DO 06/05/19 0802 1523 Melony Pack DO /phil
--- NOTE | 2019-06-05 13:30 | NUR ---
CALLED IN PRESCRIPTION FOR ELIQUIS WRITTEN TO PT[facility]S [facility] [address] COPAY IS $21. INFORMED PT. HER HUSBNAD WILL BE WITH HER AT HOME. SHE HAS A FRONT WHEEL WALKER. SHE IS NORMALLY INDEPENDENT. WOULD LIKE [facility] FOR HOME HEALTH FOR FIRST 2 WEEKS. THEN OUTPT.AT [facility] WITH [facility]. MADE REFERRAL TO [facility] AND NOTIFIED [facility] OUTPT. THERAPY. PT.THINKS SHE WILL DISCHARGE LATER TODAY.
[2019-06-05 13:38] VITALS: BP 120/64
[2019-06-05] MEDS ORDERED: ELIQUIS2.5 MG PO (14:39)
[2019-06-05] MEDS ORDERED: OXYCODONE HCL 55 MG PO (14:43)
[2019-06-05] MEDS ORDERED: TRAMADOL 50 MG50 MG PO (14:45)
--- NOTE | 2019-06-05 16:16 | NUR ---
PT IS POD 1. DRESSING TO RIGHT KNEE IS C/D/I, BILATERAL EZEKIEL HOSE IN PLACE. PT WORKED WITH THERAPIES AND TOLERATED WELL. THREE DOSES OF IV ABX GIVEN PER ORDERS. PO PAIN MEDICATIONS GIVEN WITH GOOD RESULTS. PT WAS GETTING READY TO GO HOME SHE BECAME NAUSEATED AND VOMITED X1. PT AND HER SPOUSE STATE THEY DON'T WANT TO GO HOME TONIGHT. DR CONKLIN NOTIFIED.
[2019-06-05 20:58] VITALS: BP 153/133
[2019-06-06 04:00] LABS: HEMATOCRIT 33.3 % (37.0-47.0); HEMOGLOBIN 11.1 gm/dL (12.0-15.0)
--- NOTE | 2019-06-06 05:36 | NUR ---
PATIENT GOT ON CPM MACHINE HANDLED SETTING AT 35 FOR 2 HOURS WELL. PAIN SEEMS TO BE WELL MANAGED BUT GETTING UP WILL STILL BE AN ISSUE. SHE CAN GET UP WITH ASSISTANCE. KEPT ICE ON KNEE ALL SHIFT AND ADMINISTERED PAIN MEDS NEEDED. SHE DID NOT REPORT AND DIZZINESS OR NAUSEA THIS SHIFT. WILL CONTINUE TO MONITOR.
[2019-06-06 07:28] VITALS: BP 109/63
--- NOTE | 2019-06-06 14:10 | NUR ---
ASSUMED CARE OF PT THIS AM. REFER TO ASSESSMENT. PT HAS HAD NO C/O NAUSEA OR DIZZINESS ON PREVIOUS SHIFT OR TODAY. PROPHYLACTIC DOSE OF IV ZOFRAN ADMINISTERED THIS AM PER PHYSICIAN REQUEST. DIFFICULTY WITH PAIN MANAGEMENT THIS SHIFT. PT GIVEN PRN OXY, TRAMADOL, AND SCHEDULED TYLENOL. PT DEMONSTRATING IMPROVED PAIN MANAGEMENT AND MOBILITY THIS AFTERNOON AND FEELS COMFORTABLE WITH DC HOME AFTER SECOND THERAPY SESSION. NO OTHER CONCERNS AT THIS TIME. WCTM. CLWR.
--- NOTE | 2019-06-06 15:35 | NUR ---
PT.TO DISCHARGE TODAY. HAD CALLED [facility] THIS AM TO LET THEM KNOW PT.DID NOT DISCHARGE YESTERDAY. CALLED THEM BACK AT THIS TIME TO INFORM SHE IS LEAVING TODAY. HAD TO LEAVE FOR [facility]. DISCHARGE ORDERS WERE FAXED YESTERDAY.
[2019-06-06 16:02] VITALS: BP 120/64
--- NOTE | 2019-06-06 16:02 | NUR ---
PT GIVEN DISCHARGE INFORMATION, CARE NOTES, AND PRESCRIPTIONS. IV REMOVED. PT BELONGINGS GATHERED. PT LEF VIA WHEELCHAIR WITH NURSING STAFF TP HOME WITH HOME HEALTH. FALL RISK PRECAUTIONS IN PLACE. HOURLY ROUNDING COMPLETED.
== END 2019-06-06 16:03 | disposition home health service (06) ==
LOC: M.SUR 11:15 → M.TBA-ER 15:43 → M.ORTHSURG 15:43
PROVIDERS: Orthopaedic Surgery; ADMIT Internal Medicine
DX: M17.11 Unilateral primary osteoarthritis, right knee (principal); M21.161 Varus deformity, not elsewhere classified, right knee; E03.9 Hypothyroidism, unspecified; D62 Acute posthemorrhagic anemia; Z79.899 Other long term (current) drug therapy; Z85.3 Personal history of malignant neoplasm of breast

== ENCOUNTER → 2019-09-03 | Outpatient (CLI) | payer OTHER ==
[~2019-09-03] MED LIST changes: +ELIQUIS2.5 MG PO; +TRAMADOL 50 MG50 MG PO
== END ==
LOC: M.RAD 10:14
DX: C50.211 Malignant neoplasm of upper-inner quadrant of right female breast (principal); Z17.0 Estrogen receptor positive status [ER+]; Z85.3 Personal history of malignant neoplasm of breast

== ENCOUNTER → 2020-09-02 | Outpatient (CLI) | payer OTHER | LOC: M.RAD 08:36 | PROVIDERS: ATTEND Family Medicine | DX: Z12.31 Encounter for screening mammogram for malignant neoplasm of breast (principal) ==

== ENCOUNTER → 2021-09-02 | Outpatient (CLI) | payer OTHER | LOC: M.CT 09:31 | PROVIDERS: ATTEND Nurse Practitioner Family | DX: Z13.6 Encounter for screening for cardiovascular disorders (principal); I25.10 Atherosclerotic heart disease of native coronary artery without angina pectoris ==

== ENCOUNTER → 2021-09-02 | Outpatient (CLI) | payer OTHER | LOC: M.RAD 09-01 09:30 | PROVIDERS: ATTEND Nurse Practitioner Family | DX: Z12.31 Encounter for screening mammogram for malignant neoplasm of breast (principal); N64.89 Other specified disorders of breast; Z85.3 Personal history of malignant neoplasm of breast ==